=== PATIENT | male | born 1985 | race Caucasian/White ===

== ENCOUNTER 2021-06-22 14:07 | Emergency (ER) | payer OTHER, MEDICAID, SELFPAY ==
[2021-06-22 14:09] VITALS: BP 172/104; PULSE 73; RESP 16; TEMP 36.8; O2SAT 99; BMI 31.6
--- NOTE | 2021-06-22 14:38 | EDS_ITS ---
HPI History of Present Illness Chief Complaint: Laceration Narrative Narrative: 35-year-old male presenting with laceration to left ring finger. 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 He cut it on a piece of broken glass or plate. Patient able to control bleeding with direct pressure. Dressing was applied after rinsing. Last tetanus unknown. Patient [id number]. [facility] Medical History Anxiety Depression Home Medications buspirone 7.5 mg PO DAILY 06/22/21 [History Last Taken Unknown] fluoxetine [Prozac] 40 mg PO DAILY 06/22/21 [History Last Taken Unknown] hydroxyzine HCl 25 mg PO DAILY 06/22/21 [History Last Taken Unknown] Allergy/AdvReac Type Severity Reaction Status Date / Time No Known Allergies Allergy Verified 06/22/21 14:12 Social History Smoking Status: Never smoker ROS ROS ED Constitutional Constitutional ED: Denies chills, fever(s) or sweats Eyes Eyes: Denies blurry vision or change in vision ENT ENT ED: Denies ear pain or sore throat Cardiovascular Cardiovascular: Denies chest pain, palpitations or racing heartbeat Respiratory/Chest Respiratory/Chest: Denies cough, dyspnea or sputum Gastrointestinal Gastrointestinal: Denies abdominal pain, constipation, diarrhea, nausea or vomiting Genitourinary Genitourinary ED: Denies dysuria, hematuria or urinary frequency Musculoskeletal Musculoskeletal: Denies arthralgias, myalgias or neck pain Integumentary Reports other Details: Laceration left ring finger ; Denies abscess or rash Neurologic Neurologic: Denies headache(s), paresthesias or weakness Psychiatric Psychiatric: Denies anxiety, depression, suicidal ideation or suicidal thoughts Endocrine Endocrinology: Denies polydipsia or polyuria EXAM Physical Exam Const Vital Signs: 06/22/21 14:09 Temperature 98.3 F Temperature Source Temporal Pulse Rate 73 Respiratory Rate 16 Blood Pressure 172/104 H Blood Pressure Mean 126 Pulse Ox 99 Oxygen Delivery Method Room Air Positive well nourished General Appearance ED: NAD HEENT atraumatic Eyes PERRL and EOMs intact bilaterally Resp normal respiratory effort Cardio regular rhythm Rate: regular rate Neuro oriented x3 Sensorium / Orientation: alert Psych mental status grossly normal Skin Skin Narrative: 1.5 cm laceration horizontal across the distal left ring finger volar surface. Bleeding controlled. Wound margins and approximated. No bony tenderness. Left hand neurovascular intact brisk cap refill to all 5 fingers. PROC Procedures Lacerations Left ring finger laceration: Depth: Sub Q Shape: Linear Prep: Sterile Conditions and Chlorhexadine Laceration repair: Irrigated and Lidocaine Irrigated (ml): 250 Number of Sutures/Zeeshan: 4 Suture Information: Ethilon and 4-0 MDM MDM MDM Narrative Medical decision making narrative: Patient presents with 1.5 cm left ring trigger laceration. Tetanus immunization was updated today. Patient neurovascular intact. He does not need any imaging. Wound was cleaned and sutured. Patient tolerated this well. Please see procedure note. Patient given instructions for sutures out in 2 weeks. He will likely follow[facility]up with [facility] for [facility]. He was counseled not to submerge his hand. He can rinse and pat dry. He is to keep a clean dressing on at all times. He is given instructions on monitoring for infection. If that should occur should return to the emergency room. Patient stable for discharge at this time. Impression: 1. 1.5 cm left ring finger laceration Discharge Plan Triage Chief Complaint: Laceration ED Provider: Rizwan Baptiste Dx/Rx/DC Orders Instructions: ED Laceration: All Closures Prescriptions: No Action fluoxetine [Prozac] 40 mg capsule 40 mg PO DAILY RF: 0 buspirone 7.5 mg tablet 7.5 mg PO DAILY RF: 0 hydroxyzine HCl 25 mg tablet 25 mg PO DAILY RF: 0 Primary Care Provider: Chayito Euceda Referrals: [facility] [NON-[facility]] - Activity Restrictions/Additional Instructions: Sutures will need to be in place for 2 weeks. Keep your wound clean, dry, dressed. Do not submerge your hand in any water. They can be rinsed and patted dry. Monitor for signs of infection. He should follow-up with the [facility] Disposition Disposition: Home, Self Care
[2021-06-22] MEDS: Lidocaine 2% (20 ml mdv) 20 ML Vial INFILT (14:58)
[2021-06-22] MEDS: Diphth,Pertuss(Acell),Tet Vac 0.5 ML Vial IM (14:58)
== END 2021-06-22 15:43 | disposition home or self-care (01) ==
PROVIDERS: Emergency Provider Student in an Organized Health Care Education/Training Program; PCP Family Medicine; Visit Provider Student in an Organized Health Care Education/Training Program
DX: S61.215A Laceration without foreign body of left ring finger without damage to nail, initial encounter (principal); W25.XXXA Contact with sharp glass, initial encounter; W45.8XXA Other foreign body or object entering through skin, initial encounter; Y93.G1 Activity, food preparation and clean up; Y99.0 Civilian activity done for income or pay; Y92.89 Other specified places as the place of occurrence of the external cause; F41.9 Anxiety disorder, unspecified; F32.A Depression, unspecified; Z79.899 Other long term (current) drug therapy; Z23 Encounter for immunization
CPT/HCPCS: 12001; 90471; 90715; 99282

== ENCOUNTER → 2023-02-18 | Outpatient (CLI) | payer MEDICAID, SELFPAY ==
[2023-02-18 11:27] LABS: Absolute Lymphocyte Count 1.64 X10^3/uL (0.83-4.51); Absolute Neutrophil Count 3.6 X10^3/uL (2.0-7.7); Basophil# 0.05 X10^3/uL; Basophil% 0.8 % (0-1); Eosinophil# 0.18 X10^3/uL; Hematocrit 46.1 % (40-54); Hemoglobin 16.1 g/dL (13.0-16.5); Lymphocyte # 1.64 X10^3/ul (0.83-4.51); Lymphocyte % 26.9 % (19-41); Mean Corp Hgb Conc 34.9 g/dL (32-36); Mean Corpuscular Hgb 29.2 pg (27.0-32.0); Mean Corpuscular Volume 83.5 fL (80-94); Mean Platelet Vol. 9.2 fl (6.2-12.0); Monocyte# 0.59 X10^3/uL; Monocyte% 9.7 % (0-10); NRBC Flagged by Analyzer 0 % (0-5); Neutrophil # 3.61 X10^3/uL (2.7-7.7); Neutrophil % 59.1 % (47-70); Platelet Count 340 K/mm3 (150-450); Red Blood Count 5.52 M/mm3 (4.6-6.2); White Blood Count 6.1 K/mm3 (4.4-11.0)
[2023-02-18 11:51] LABS: ALB/GLOB Ratio 1.3 RATIO (0.9-2.4); AST(SGOT) 21 U/L (15-37); Alanine Aminotransfer ALT/SGPT 40 U/L (16-61); Albumin, Serum 4.4 g/dL (3.2-5.0); Alkaline Phosphatase 59 U/L (45-117); Anion Gap 3 (5-15); BUN 14 mg/dL (7-18); BUN/Creat Ratio 15.3 RATIO (10-20); Calcium,Total 9.7 mg/dL (8.5-10.1); Chloride 106 mmol/L (98-107); Cholesterol 254 mg/dL (200); Creatinine, Serum 0.92 mg/dL (0.70-1.30); EST Glomerular Filtration Rate 100 mL/min (>60); Est Glom Filt Rate - Afr Amer 121 mL/min (>60); Globulin 3.5 g/dL (2.2-4.2); Glucose 85 mg/dL (74-106); High Density Lipoprotein 38 mg/dL; Potassium 3.8 mmol/L (3.5-5.1); Protein, Total 7.9 g/dL (6.4-8.2); Sodium Level 137 mmol/L (136-145); Thyroid Stim Hormone (TSH) 2.19 uIU/mL (0.358-3.74); Triglycerides 342 mg/dL; Very Low Density Lipoprotein 68 mg/dL (5-40)
== END | disposition home or self-care (01) ==
LOC: PAVLAB 11:05
PROVIDERS: PCP Family Medicine; Referring Provider Family Medicine; Visit Provider Family Medicine
DX: Z13.1 Encounter for screening for diabetes mellitus (principal); E66.3 Overweight
CPT/HCPCS: 36415; 80053; 80061; 84443; 85025

== ENCOUNTER 2023-11-06 13:01 | Emergency (ER) | payer BC, SELFPAY ==
[2023-11-06 13:02] VITALS: BP 137/95; PULSE 71; RESP 16; TEMP 36.6; O2SAT 100; BMI 30.6
--- NOTE | 2023-11-06 14:01 | CT_ITS ---
EXAM: CT ABDOMEN AND PELVIS WITHOUT INTRAVENOUS CONTRAST CLINICAL INDICATION: PAIN TECHNIQUE: Helically acquired images were obtained of the abdomen and pelvis without intravenous contrast. This CT exam was performed using one or more of the following dose reduction techniques: automated exposure control, adjustment of the mA and/or kV according to patient size, and/or use of iterative reconstruction technique. COMPARISON: No relevant prior studies available. FINDINGS: LOWER THORAX: No significant abnormality. Lung bases are clear. No cardiomegaly. No significant pericardial effusion. ABDOMEN: LIVER: No significant abnormality. Homogeneous. GALLBLADDER AND BILE DUCTS: No significant abnormality. No calcified gallstones. No gallbladder distention or wall edema. No intra- or extrahepatic biliary ductal dilation. PANCREAS: No significant abnormality. No focal cystic mass. SPLEEN: No significant abnormality. Normal size without focal cystic or solid mass. ADRENALS: No significant abnormality. No nodules. KIDNEYS AND URETERS: 2 mm stone at the left ureterovesicular junction with trace left-sided hydroureteronephrosis. Right lower pole nonobstructing nephrolithiasis, the largest measuring 2 mm. Left upper pole nonobstructing nephrolithiasis, the largest measuring approximately 3 mm. STOMACH AND BOWEL: Colonic diverticulosis without evidence of acute diverticulitis. No stomach or bowel distention. PELVIS: APPENDIX: Normal appendix in the right lower quadrant. BLADDER: No significant abnormality. REPRODUCTIVE: Normal as visualized. No mass. ABDOMEN and PELVIS: INTRAPERITONEAL SPACE: No significant abnormality. No ascites or other fluid collection. No free air. BONES/JOINTS: No significant abnormality. No suspicious lytic or blastic abnormality. SOFT TISSUES: Fat-containing left inguinal hernia and small fat-containing umbilical hernia. VASCULATURE: No significant abnormality. Abdominal aorta is non-dilated. LYMPH NODES: No significant abnormality. No enlarged lymph nodes. CT/Abdomen/Pelvis without Cont IMPRESSION: 1. 2 mm stone at the left ureterovesicular junction with trace left-sided hydroureteronephrosis. Additional nonobstructive urolithiasis bilaterally. 2. Colonic diverticulosis without evidence of acute diverticulitis. Electronically Signed: Chuy Trinidad DO at 15:04 EDT ,
--- NOTE | 2023-11-06 14:02 | EX.ED.DYSGE1 ---
HPI History of Present Illness Chief Complaint: Abd Pain Informant: patient Onset/Context/Timing Onset: Today Context: Sudden Onset Timing: Waxes and wanes Quality: Cramping, dull Location: Left lower abdomen Worsened by: Eating Relieved by: Vomiting Narrative Narrative: Patient presents with abdominal pain that began today. Patient states it began rather suddenly. Patient states it woke him up early this morning. Patient states it has been waxing and waning. Patient states that it is mainly over the left lower abdomen. Patient states that it got worse after eating. Patient states he got better after he vomited. Patient states he has a history of kidney stones. Patient denies any dysuria or hematuria. Patient does admit to some urinary frequency but states he has been drinking more water recently. [facility] Medical History (Updated 11/06/23 @ 15:[address] Marcus Meredith DO) Laceration without foreign body of left ring finger without damage to nail, initial encounter Anxiety Depression Home Medications ?Medication ?Instructions ?Recorded ?Last Taken ?Type buspirone 7.5 mg tablet 7.5 mg PO DAILY 06/22/21 Unknown History fluoxetine 40 mg capsule (Prozac) 40 mg PO DAILY 06/22/21 Unknown History hydroxyzine HCl 25 mg tablet 25 mg PO DAILY 06/22/21 Unknown History hydrocodone-acetaminophen 5-325mg 1 tab PO Q6H PRN PRN Pain 3 days 11/06/23 Unknown Rx 5mg-325mg #10 TABLETS Allergy/AdvReac Type Severity Reaction Status Date / Time No Known Allergies Allergy Verified 11/06/23 13:02 Social History Smoking Status: Never smoker ROS ROS ED Constitutional Constitutional ED: Reports chills and sweats; Denies fever(s) Eyes Eyes: Denies blurry vision or change in vision ENT ENT ED: Denies rhinorrhea or sore throat Cardiovascular Cardiovascular: Denies chest pain or palpitations Respiratory/Chest Respiratory/Chest: Denies cough or dyspnea Gastrointestinal Gastrointestinal: Reports abdominal pain, nausea and vomiting; Denies diarrhea or melena Genitourinary Genitourinary ED: Reports urinary frequency; Denies dysuria or hematuria Musculoskeletal Musculoskeletal: Denies back pain or neck pain Integumentary Denies abscess or rash Neurologic Neurologic: Denies headache(s) or weakness Allergic/Immunologic Allergic/Immunologic ED: Denies mouth swelling or urticaria EXAM Physical Exam Const Vital Signs: 11/06/23 13:02 Temperature 97.9 F Temperature Source Temporal Pulse Rate 71 Respiratory Rate 16 Blood Pressure 137/95 H Blood Pressure Mean 109 Pulse Ox 100 Oxygen Delivery Method Room Air Positive well nourished and well developed General Appearance ED: well developed and NAD HEENT Reports moist mucous membranes Neck supple and no JVD Resp normal respiratory effort and clear to auscultation bilaterally Cardio regular rate and regular rhythm GI non-distended Palpation: soft and tender LLQ; Negative for guarding or rebound tenderness present Back/Spine no CVA tenderness Neuro oriented x3, CN's II-XII intact bilaterally and no sensory deficits noted Sensorium / Orientation: alert Motor Exam: strength 5/5 throughout MDM MDM MDM Narrative Medical decision making narrative: Differential diagnosis includes diverticulitis, ureteral calculus, pyelonephritis, gastroenteritis, bowel obstruction, perforation. CBC will be obtained to assess for leukocytosis and anemia. Basic metabolic profile will be obtained to assess for electrolyte abnormality and renal function. Urinalysis will be obtained to assess for urinary tract infection and hematuria. CT scan of the abdomen pelvis will be obtained to assess for ureteral calculus, diverticulitis, bowel obstruction, perforation. Lab Data Attestation: I reviewed the patient's lab results. Lab results narrative: CBC was reviewed and was within normal limits. Basic metabolic profile was reviewed and was within normal limits. Urinalysis was reviewed. Occult blood was 250 with greater than 100 red blood cells. There is no evidence of urinary tract infection. Labs: Laboratory Results - last 24 hr 11/06/23 11/06/23 13:30 14:10 WBC 4.6 RBC 5.06 Hgb 15.0 Hct 41.2 MCV 81.4 MCH 29.6 MCHC 36.4 H RDW Std Deviation 35.2 RDW Coeff of Tono 12.0 Plt Count 291 MPV 9.6 Immature Gran % (Auto) 0.400 Neut % (Auto) 68.9 Lymph % (Auto) 21.0 [place] % (Auto) 7.2 Eos % (Auto) 1.8 Baso % (Auto) 0.7 Absolute Neuts (auto) 3.2 Absolute Lymphs (auto) 0.96 Nucleated RBC % 0 Sodium 136 Potassium 3.3 L Chloride 103 Carbon Dioxide 23.0 Anion Gap 10 BUN 15 Creatinine 0.99 Estim Creat Clear Calc 106.04 Est GFR (MDRD) Af Amer 109 Est GFR (MDRD) Non-Af 90 BUN/Creatinine Ratio 15.1 Glucose 109 H Calcium 9.2 Urine Color Yellow Urine Clarity Sl. Cloudy Urine pH 8.0 Ur Specific Ulen 1.010 Urine Protein 30 H Urine Glucose (UA) Normal Urine Ketones Negative Urine Occult Blood 250 H Urine Nitrite Negative Urine Bilirubin Negative Urine Urobilinogen Normal Ur Leukocyte Esterase 25 H Urine RBC > 100 SEEN Urine WBC 0 SEEN Ur Squamous Epith Cells 0 SEEN Urine Bacteria 0 SEEN Urine Mucus 0 SEEN Radiography Diagnostic Testing: Clinical Impression(s) from Imaging Studies Abdomen/Pelvis CT 11/06/23 14:01 IMPRESSION: 1. 2 mm stone at the left ureterovesicular junction with trace left-sided hydroureteronephrosis. Additional nonobstructive urolithiasis bilaterally. 2. Colonic diverticulosis without evidence of acute diverticulitis. Electronically Signed: Chuy Trinidad DO at 15:04 EDT , CT scan of the abdomen pelvis was obtained. There is a 2 mm calculus at the left ureterovesicular junction. There is mild hydronephrosis. There is a nonobstructing stone measuring approximately 2 mm lower pole of the right kidney and there is a 3 mm left upper pole nonobstructing calculus noted. There is no other acute abnormality noted. This was interpreted by the radiologist and was also independently reviewed by myself. Treatment and Re-Evaluation :: Patient was given IV fluids, morphine, and Zofran. Patient was advised of his findings. Patient was instructed to follow-up with his urologist and primary care physician in 5 to 7 days. Patient was given a prescription for a short course of [place]. Patient understood and was agreeable with the plan. All questions were answered. Discharge Plan Triage Chief Complaint: Abd Pain ED Provider: Marcus Meredith Dx/Rx/DC Orders Clinical Impression: Calculus of distal left ureter, Elevated blood pressure reading Instructions: ED Kidney Stone with Pain Prescriptions: New hydrocodone-acetaminophen 5-325 mg tablet 1 tab PO Q6H PRN PRN (Reason: Pain) 3 Days Qty: 10 0RF No Action fluoxetine [Prozac] 40 mg capsule 40 mg PO DAILY Patient Comments: Take 1 capsule by mouth every morning buspirone 7.5 mg tablet 7.5 mg PO DAILY Patient Comments: take 1 tablet by mouth once daily hydroxyzine HCl 25 mg tablet 25 mg PO DAILY Patient Comments: Take 1-2 tablet by mouth at bedtime as needed Primary Care Provider: Darci Castillo Referrals: Chayito Euceda MD [Med Staff - Senior Product Integrity Engineer] - 5-7 Days Print Language: Other Disposition Disposition: Home, Self Care
[2023-11-06 14:10] LABS: Absolute Lymphocyte Count 0.96 X10^3/uL (0.83-4.51); Absolute Neutrophil Count 3.2 X10^3/uL (2.0-7.7); Basophil# 0.03 X10^3/uL; Basophil% 0.7 % (0-1); Eosinophil# 0.08 X10^3/uL; Eosinophils% 1.8 % (0-5); Hematocrit 41.2 % (40-54); Lymphocyte # 0.96 X10^3/ul (0.83-4.51); Mean Corp Hgb Conc 36.4 g/dL (32-36); Mean Corpuscular Hgb 29.6 pg (27.0-32.0); Mean Corpuscular Volume 81.4 fL (80-94); Mean Platelet Vol. 9.6 fl (6.2-12.0); Monocyte# 0.33 X10^3/uL; Monocyte% 7.2 % (0-10); NRBC Flagged by Analyzer 0 % (0-5); Neutrophil # 3.15 X10^3/uL (2.7-7.7); Neutrophil % 68.9 % (47-70); Platelet Count 291 K/mm3 (150-450); RBC Distribution Width SD 35.2 fl (35.1-43.9); Red Blood Count 5.06 M/mm3 (4.6-6.2); White Blood Count 4.6 K/mm3 (4.4-11.0)
[2023-11-06] MEDS: Ondansetron 4 MG/2 ML Vial IV (14:18)
[2023-11-06] MEDS: Morphine 4 MG/ML Syringe IV (14:18)
[2023-11-06] MEDS: 0.9% Normal Saline (1000mL) 1,000 ML 999 ML IV (14:18)
[2023-11-06 14:19] LABS: Anion Gap 10 (5-15); BUN 15 mg/dL (7-18); BUN/Creat Ratio 15.1 RATIO (10-20); Calcium,Total 9.2 mg/dL (8.5-10.1); Chloride 103 mmol/L (98-107); Creatinine, Serum 0.99 mg/dL (0.70-1.30); EST Glomerular Filtration Rate 90 mL/min (>60); Est Glom Filt Rate - Afr Amer 109 mL/min (>60); Estimated Creatinine Clearance 106.04 ml/min; Glucose 109 mg/dL (74-106); Potassium 3.3 mmol/L (3.5-5.1); Sodium Level 136 mmol/L (136-145)
[2023-11-06 14:24] LABS: Bacteria 0 SEEN /hpf (None Seen); Mucous, Urine 0 SEEN /hpf (<or=2+); Squamous Epithelial Cells - UA 0 SEEN /hpf (0-5); White Blood Cells 0 SEEN /hpf (0-5)
[2023-11-06 14:26] LABS: Color, Urine Yellow (Yellow); Glucose, Dipstick Normal (Normal); Ketone-Dipstick Negative (Negative); Leukocyte Esterase-Dipstick 25 /ul (Negative); Nitrite-Dipstick Negative (Negative); Occult Blood-Urine 250 /ul (Negative); Protein-Dipstick 30 mg/dl (Negative); Urine Bilirubin Dipstick Negative (Negative); Urine Clarity Sl. Cloudy (Clear); Urine Urobilinogen Normal (Normal)
[2023-11-06 14:38] LABS: Red Blood Cells-Urine > 100 SEEN /hpf (0-5)
[2023-11-06 15:01] VITALS: BP 143/77; PULSE 80; RESP 18; O2SAT 98
[2023-11-06 15:56] VITALS: BP 122/70; PULSE 66; RESP 18; TEMP 36.8; O2SAT 99
== END 2023-11-06 15:58 | disposition home or self-care (01) ==
PROVIDERS: Emergency Provider Emergency Medicine; PCP Family Medicine; Visit Provider Emergency Medicine
DX: N13.2 Hydronephrosis with renal and ureteral calculous obstruction (principal); R03.0 Elevated blood-pressure reading, without diagnosis of hypertension
CPT/HCPCS: 96360; 74176; 80048; 81001; 85025; 96361; 96374; 96375; 99283; J7030; A4216; J2405

== ENCOUNTER → 2024-02-17 | Outpatient (CLI) | payer BC, SELFPAY ==
[2024-02-17 11:01] LABS: Anion Gap 5 (5-15); BUN 15 mg/dL (7-18); BUN/Creat Ratio 15.5 RATIO (10-20); Calcium,Total 9.6 mg/dL (8.5-10.1); Chloride 107 mmol/L (98-107); Cholesterol 259 mg/dL (200); Creatinine, Serum 0.97 mg/dL (0.70-1.30); EST Glomerular Filtration Rate 93 mL/min (>60); Est Glom Filt Rate - Afr Amer 112 mL/min (>60); Glucose 84 mg/dL (74-106); High Density Lipoprotein 33 mg/dL; Potassium 3.7 mmol/L (3.5-5.1); Sodium Level 138 mmol/L (136-145); Triglycerides 277 mg/dL; Very Low Density Lipoprotein 55 mg/dL (5-40)
[2024-02-17 11:17] LABS: Hemoglobin A1c 5.2 % (3.8-5.6)
== END | disposition home or self-care (01) ==
LOC: MFPLAB 09:04
PROVIDERS: PCP Family Medicine; Referring Provider Family Medicine; Visit Provider Family Medicine
DX: E78.5 Hyperlipidemia, unspecified (principal); R73.09 Other abnormal glucose; E87.6 Hypokalemia
CPT/HCPCS: 36415; 80048; 80061; 83036